=== PATIENT | female | born 1955 | race American Indian/Alaskan Native ===

== ENCOUNTER 2019-10-07 21:12 | Observation (INO) | payer MEDICARE ==
[2019-10-07] MEDS ORDERED: SODIUM CHLORIDE 0.9% 1000 ML 1,000 ML ONE (21:31)
[2019-10-07] MEDS ORDERED: SODIUM CHLORIDE 0.9% 1000 ML IV SOLN IV ONE ×2 (21:43→21:46)
--- NOTE | 2019-10-07 21:54 | Emergency Department Report ---
ED General Adult HPI - General Chief complaint: Weakness Stated complaint: GEN WEAKNESS/DOUBLE VISION Time Seen by Provider: 10/07/19 21:38 Source: patient, family Mode of arrival: Wheelchair Limitations: Physical Limitation - History of Present Illness Initial comments: Patient presents to the emergency department with a chief complaint of feeling weak with nausea that started on Sunday. The granddaughter states that she had multiple episodes of vomiting on Sunday but denies any diarrhea. She states today her grandmother was confused so she called EMS and when they arrived her blood pressure was low so they gave her a bag of fluids prior to transport. Patient now complains of a headache and continue weakness. Patient denies chest pain, shortness of breath, abdominal pain. On arrival to the ED blood pressure 76/40 and that after receiving a liter of fluid via EMS -: Gradual Severity scale (0 -10): 0 Consistency: constant Improves with: none Worsens with: none Associated Symptoms: denies other symptoms Treatments Prior to Arrival: none - Related Data Home Medications Medication Instructions Recorded Confirmed Last Taken Benzonatate [Tessalon Perles] 100 mg pe PO QDAY 10/08/19 10/08/19 Unknown DULoxetine [Cymbalta] 30 mg pe PO QDAY 10/08/19 10/08/19 Unknown Lisinopril [Zestril] 5 mg PO QDAY 10/08/19 10/08/19 Unknown Pantoprazole [Protonix TAB] 20 mg QDAY 10/08/19 10/08/19 Unknown amLODIPine 10 mg PO QDAY 10/08/19 10/08/19 Unknown Allergies Allergy/AdvReac Type Severity Reaction Status Date / Time ibuprofen Allergy Unknown Verified 10/07/19 21:23 Penicillins Allergy Unknown Verified 10/07/19 21:23 ED Review of Systems ROS: Stated complaint: GEN WEAKNESS/DOUBLE VISION Other details as noted in HPI Comment: All other systems reviewed and negative Constitutional: denies: chills, fever Eyes: denies: eye pain, eye discharge, vision change ENT: denies: ear pain, throat pain Respiratory: denies: cough, shortness of breath, wheezing Cardiovascular: denies: chest pain, palpitations Endocrine: no symptoms reported Gastrointestinal: denies: abdominal pain, nausea, diarrhea Genitourinary: denies: urgency, dysuria, discharge Musculoskeletal: denies: back pain, joint swelling, arthralgia Skin: denies: rash, lesions Neurological: headache, weakness. denies: paresthesias Psychiatric: denies: anxiety, depression Hematological/Lymphatic: denies: easy bleeding, easy bruising ED Past Medical Hx - Medications Home Medications: Home Medications Medication Instructions Recorded Confirmed Last Taken Type Benzonatate [Tessalon Perles] 100 mg pe PO QDAY 10/08/19 10/08/19 Unknown History DULoxetine [Cymbalta] 30 mg pe PO QDAY 10/08/19 10/08/19 Unknown History Lisinopril [Zestril] 5 mg PO QDAY 10/08/19 10/08/19 Unknown History Pantoprazole [Protonix TAB] 20 mg QDAY 10/08/19 10/08/19 Unknown History amLODIPine 10 mg PO QDAY 10/08/19 10/08/19 Unknown History ED Physical Exam - General Limitations: Physical Limitation General appearance: alert, in no apparent distress - Head Head exam: Present: atraumatic, normocephalic - Eye Eye exam: Present: normal appearance, PERRL, EOMI - ENT ENT exam: Present: mucous membranes moist - Neck Neck exam: Present: normal inspection - Respiratory Respiratory exam: Present: normal lung sounds bilaterally. Absent: respiratory distress - Cardiovascular Cardiovascular Exam: Present: regular rate, normal rhythm. Absent: systolic murmur, diastolic murmur, rubs, gallop - GI/Abdominal GI/Abdominal exam: Present: soft, normal bowel sounds. Absent: distended, tenderness - Extremities Exam Extremities exam: Present: normal inspection - Back Exam Back exam: Present: normal inspection - Neurological Exam Neurological exam: Present: alert, oriented X3, CN II-XII intact. Absent: motor sensory deficit - Psychiatric Psychiatric exam: Present: normal affect, normal mood - Skin Skin exam: Present: warm, dry, intact, normal color. Absent: rash ED Course Vital Signs 10/07/19 10/07/19 10/07/19 21:24 21:25 21:29 Temperature 97.7 F Pulse Rate 70 66 Respiratory 18 22 Rate Blood Pressure Blood Pressure 64/21 79/34 [Right] O2 Sat by Pulse 99 96 Oximetry 10/07/19 10/07/19 10/08/19 21:30 21:46 00:34 Temperature Pulse Rate 69 74 101 H Respiratory 22 21 28 H Rate Blood Pressure 84/40 76/44 Blood Pressure 170/109 [Right] O2 Sat by Pulse 98 99 96 Oximetry ED Medical Decision Making - Lab Data Result diagrams: 10/07/19 21:50 10/07/19 22:02 - EKG Data -: EKG Interpreted by Me EKG shows normal: sinus rhythm Rate: normal - Radiology Data Radiology results: report reviewed - Medical Decision Making The patient was given a total 4000 mL of normal saline with a blood pressure decreasing to 103 systolically Patient's initial lactic acid was elevated Patient will be admitted for further evaluation for her hypotension that was responsive to IV fluids Critical Care Time: Yes Critical care time in (mins) excluding proc time.: 45 Critical care attestation.: If time is entered above; I have spent that time in minutes in the direct care of this critically ill patient, excluding procedure time. ED Disposition Clinical Impression: Hypotension, Lactic acidosis Disposition: DC-09 OP ADMIT IP TO THIS HOSP Is pt being admited?: Yes Does the pt Need Aspirin: No Condition: Fair
[2019-10-07 22:39] LABS: Basophils % (Auto) 0.5 % (0.0-1.8); Eosinophils # (Auto) 0.2 K/mm3 (0.0-0.4); Eosinophils % (Auto) 2.4 % (0.0-4.3); Hematocrit 26.8 % (30.3-42.9); Hemoglobin 8.7 gm/dl (10.1-14.3); Lymphocytes % (Auto) 15.5 % (13.4-35.0); Mean Corpuscular HGB Conc 33 % (30-34); Mean Corpuscular Volume 88 fl (79-97); Monocytes # (Auto) 0.6 K/mm3 (0.0-0.8); Monocytes % (Auto) 10.1 % (0.0-7.3); Platelet Count 139 K/mm3 (140-440); Red Blood Count 3.05 M/mm3 (3.65-5.03); Red Cell Distribution Width 18.6 % (13.2-15.2)
--- NOTE | 2019-10-07 22:39 | XRay Report ---
CHEST 1 VIEW INDICATION: hypotensive. COMPARISON: None. FINDINGS: Support devices: None. Heart: Normal. Lungs/Pleura: No acute pulmonary or pleural findings. IMPRESSION: 1. No acute findings. Signer Name: Igor Patel MD Signed: 10/07/2019 10:34 PM Workstation Name: [id number]
--- NOTE | 2019-10-07 22:53 | Cat Scan Report ---
CT head without contrast INDICATION : headache. TECHNIQUE: Axial imaging performed from the skull apex through the skull base without the use of con trast. All CT scans at this location are performed using CT dose reduction for ALARA by means of aut omated exposure control. COMPARISON: None FINDINGS: Parenchyma: No acute intracranial hemorrhage or parenchymal abnormality. Ventricles: Ventricles are normal in size and appear symmetric. Soft tissues: Soft tissues including the orbits appear normal. Bones: No acute osseous abnormality. Sinuses: Mild mucosal thickening in the left maxillary sinus. Remaining sinuses and mastoid air cell s are clear. IMPRESSION: No acute abnormality. Signer Name: Brennen Vital MD Signed: 10/07/2019 10:49 PM Workstation Name: [id number]
[2019-10-07 23:00] LABS: Alanine Aminotransferase 28 units/L (7-56); Albumin 3.7 g/dL (3.9-5); BUN/Creatinine Ratio 15; Blood Urea Nitrogen 32 mg/dL (7-17); Calcium 8.9 mg/dL (8.4-10.2); Hemolysis Index 24
[2019-10-08 01:50] LABS: Bilirubin,Urine NEG (Negative); Blood,Urine NEG (Negative); Color,Urine Yellow (Yellow); Protein,Urine <15 mg/dL mg/dL (Negative); Urobilinogen,Urine < 2.0 mg/dL (<2.0)
[2019-10-08] MEDS ORDERED: ALBUTEROL 2.5 MG/3 ML NEBU IH PRN (04:52)
[2019-10-08] MEDS ORDERED: ONDANSETRON 4 MG/2 ML INJ IV PRN (04:52)
[2019-10-08] MEDS ORDERED: ACETAMINOPHEN 325 MG TAB PO PRN (04:52)
[2019-10-08] MEDS ORDERED: SODIUM CHLORIDE 0.45% 1000 ML 1,000 ML IV SCH (05:00)
--- NOTE | 2019-10-08 05:04 | History and Physical Report ---
History of Present Illness Date of examination: 10/08/19 Date of admission: 10/08/2019 Chief complaint: Generalized weakness and nausea History of present illness: 63-year-old -[place] female with history of HIV, hypertension, chronic pain, s/p recent cervical spine surgery, remote hx hepatitis c now cured, who presents to [facility] ED with complaints of generalized weakness and nausea x2 days. Patient's granddaughter is present at bedside and has assisted with providing history. Per granddaughter patient had multiple episodes of vomiting on Sunday (10/05/2019). On Sunday patient states that she felt weak during the day and needed to go back in the bed to rest. After spending a few hours in the bed she felt fine and was able to function at baseline. However today granddaughter states that she came home and found patient confused and called EMS. Upon EMS arrival patient was found to be hypotensive, was given a liter of IV fluids and transported to our facility for further evaluation and treatment. Additionally patient complains of chronic neck pain. Patient states that she had cervical spine surgery approximately 3 months ago and has been in pain since. She describes the pain as aching and rates it 8/10. The pain is aggravated with movement and relieved with rest and pain meds. Denies fever, noncompliance with meds, cough, sputum production, diarrhea or recent sick contacts. Will admit as observation for further evaluation. Past History Past Medical History: HIV/AIDS, hypertension, renal failure, other (Chronic pain, history of hep C now cured, depression) Past Surgical History: Other (Cervical spine surgery 2 months ago) Social history: lives with family Family history: no significant family history Medications and Allergies Allergies Allergy/AdvReac Type Severity Reaction Status Date / Time ibuprofen Allergy Unknown Verified 10/07/19 21:23 Penicillins Allergy Unknown Verified 10/07/19 21:23 Home Medications Medication Instructions Recorded Confirmed Last Taken Type Benzonatate [Tessalon Perles] 100 mg pe PO QDAY 10/08/19 10/08/19 Unknown History DULoxetine [Cymbalta] 30 mg pe PO QDAY 10/08/19 10/08/19 Unknown History Lisinopril [Zestril] 5 mg PO QDAY 10/08/19 10/08/19 Unknown History Pantoprazole [Protonix TAB] 20 mg QDAY 10/08/19 10/08/19 Unknown History amLODIPine 10 mg PO QDAY 10/08/19 10/08/19 Unknown History Active Meds: Active Medications Duloxetine HCl (Cymbalta) 30 mg PO QDAY [facility] Review of Systems All systems: negative Constitutional: fatigue, weakness, chronic pain Gastrointestinal: nausea, vomiting, no diarrhea Exam - Physical Exam Narrative exam: Physical exam General appearance: Present: No acute distress, alert and oriented 3, well- developed, -[place] adult female - EENT Eyes: Present: PERRL, EOM intact ENT: hearing intact, normal dentition - Neck Neck: Present: supple, normal ROM - Respiratory Respiratory effort: Non-labored Respiratory: Clear throughout - Cardiovascular Heart rate: 101 (bpm) Rhythm: Sinus tachycardia Heart Sounds: Present: S1 & S2. Absent: rub, click - Extremities Extremities: no ischemia, pulses intact, - Peripheral Assessment Peripheral Pulses: within normal limits - Abdominal General gastrointestinal: soft, non-tender, normal bowel sounds - Integumentary Integumentary: Present: warm, dry - Musculoskeletal Musculoskeletal: Able to move all extremities -Neurological Neurological: CN II-XII intact - Psychiatric Psychiatric: Appropriate for situation ,cooperative - Constitutional Vitals: Temp Pulse Resp BP Pulse Ox 97.7 F 75 13 111/55 99 10/07/19 21:24 10/08/19 04:30 10/08/19 04:30 10/08/19 04:30 10/08/19 04:30 Results - Labs CBC & Chem 7: 10/07/19 21:50 10/07/19 22:02 Labs: Laboratory Last Values WBC 6.4 K/mm3 (4.5-11.0) 10/07/19 21:50 RBC 3.05 M/mm3 (3.65-5.03) L 10/07/19 21:50 Hgb 8.7 gm/dl (10.1-14.3) L 10/07/19 21:50 Hct 26.8 % (30.3-42.9) L 10/07/19 21:50 MCV 88 fl (79-97) 10/07/19 21:50 MCH 29 pg (28-32) 10/07/19 21:50 MCHC 33 % (30-34) 10/07/19 21:50 RDW 18.6 % (13.2-15.2) H 10/07/19 21:50 Plt Count 139 K/mm3 (140-440) L 10/07/19 21:50 Lymph % (Auto) 15.5 % (13.4-35.0) 10/07/19 21:50 [place] % (Auto) 10.1 % (0.0-7.3) H 10/07/19 21:50 Eos % (Auto) 2.4 % (0.0-4.3) 10/07/19 21:50 Baso % (Auto) 0.5 % (0.0-1.8) 10/07/19 21:50 Lymph # 1.0 K/mm3 (1.2-5.4) L 10/07/19 21:50 [place] # 0.6 K/mm3 (0.0-0.8) 10/07/19 21:50 Eos # 0.2 K/mm3 (0.0-0.4) 10/07/19 21:50 Baso # 0.0 K/mm3 (0.0-0.1) 10/07/19 21:50 Seg Neutrophils % 71.5 % (40.0-70.0) H 10/07/19 21:50 Seg Neutrophils # 4.5 K/mm3 (1.8-7.7) 10/07/19 21:50 APTT 27.4 Sec. (24.2-36.6) 10/07/19 22:01 Sodium 139 mmol/L (137-145) 10/07/19 22:02 Potassium 3.8 mmol/L (3.6-5.0) 10/07/19 22:02 Chloride 103.0 mmol/L (98-107) 10/07/19 22:02 Carbon Dioxide 19 mmol/L (22-30) L 10/07/19 22:02 Anion Gap 21 mmol/L 10/07/19 22:02 BUN 32 mg/dL (7-17) H 10/07/19 22:02 Creatinine 2.2 mg/dL (0.7-1.2) H 10/07/19 22:02 Estimated GFR 23 ml/min 10/07/19 22:02 BUN/Creatinine Ratio 15 % 10/07/19 22:02 Glucose 115 mg/dL (65-100) H 10/07/19 22:02 Lactic Acid 1.20 mmol/L (0.7-2.0) 10/08/19 01:33 Calcium 8.9 mg/dL (8.4-10.2) 10/07/19 22:02 Total Bilirubin 0.40 mg/dL (0.1-1.2) 10/07/19 22:02 AST 56 units/L (5-40) H 10/07/19 22:02 ALT 28 units/L (7-56) 10/07/19 22:02 Alkaline Phosphatase 55 units/L (35-129) 10/07/19 22:02 Troponin T < 0.010 ng/mL (0.00-0.029) 10/07/19 22:02 Total Protein 7.3 g/dL (6.3-8.2) 10/07/19 22:02 Albumin 3.7 g/dL (3.9-5) L 10/07/19 22:02 Albumin/Globulin Ratio 1.0 % 10/07/19 22:02 Urine Color Yellow (Yellow) 10/08/19 00:55 Urine Turbidity Clear (Clear) 10/08/19 00:55 Urine pH 5.0 (5.0-7.0) 10/08/19 00:55 Ur Specific Fields 1.015 (1.003-1.030) 10/08/19 00:55 Urine Protein <15 mg/dl mg/dL (Negative) 10/08/19 00:55 Urine Glucose (UA) Neg mg/dL (Negative) 10/08/19 00:55 Urine Ketones Neg mg/dL (Negative) 10/08/19 00:55 Urine Blood Neg (Negative) 10/08/19 00:55 Urine Nitrite Neg (Negative) 10/08/19 00:55 Urine Bilirubin Neg (Negative) 10/08/19 00:55 Urine Urobilinogen < 2.0 mg/dL (<2.0) 10/08/19 00:55 Ur Leukocyte Esterase Tr (Negative) 10/08/19 00:55 Urine WBC (Auto) 2.0 /HPF (0.0-6.0) 10/08/19 00:55 Urine RBC (Auto) 1.0 /HPF (0.0-6.0) 10/08/19 00:55 U Epithel Cells (Auto) 1.0 /HPF (0-13.0) 10/08/19 00:55 - Imaging and Cardiology Imaging and Cardiology: CXR: FINDINGS: Support devices: None. Heart: Normal. Lungs/Pleura: No acute pulmonary or pleural findings. IMPRESSION: 1. No acute findings. CT Head: FINDINGS: Parenchyma: No acute intracranial hemorrhage or parenchymal abnormality. Ventricles: Ventricles are normal in size and appear symmetric. Soft tissues: Soft tissues including the orbits appear normal. Bones: No acute osseous abnormality. Sinuses: Mild mucosal thickening in the left maxillary sinus. Remaining sinuses and mastoid air cells are clear. IMPRESSION: No acute abnormality. Assessment and Plan Assessment and plan: 63-year-old -[place] female with history of HIV, hypertension, chronic pain, s/p recent cervical spine surgery, remote hx hepatitis c now cured, who presents to [facility] ED with complaints of generalized weakness and nausea x2 days. Patient's granddaughter is present at bedside and has assisted with providing history. Hypotension -BP on admission 76/66 -Responsive to fluid resuscitation -On IVF -Hx HTN -Continue to monitor BP -Hold all antihypertensive meds Lactic acidosis -Lactic acid on admission 2.6, now 1.2 -Received IV Abx in ED -on IVF -Continue to monitor -Cultures pending -Will hold off for now on starting IV abx KATERINA -Cr on admission 2.2 -??CKD with GFR 23 -Hydrate with IVF -Avoid nephrotoxic agents -Renal dose all meds HIV -Resume antiretroviral meds once medication reconciliation has been completed Chronic neck pain -Status post cervical spine surgery 3 months ago -Continue supportive care DVT PPX -On Heparin Advance Directives: No VTE prophylaxis?: Chemical Plan of care discussed with patient/family: Yes
[2019-10-08] MEDS: oxyCODONE /ACETAMINOPHEN 5-325MG TAB PO PRN ×3 (05:14→18:02)
[2019-10-08] MEDS ORDERED: ACETAMINOPHEN 325 MG TAB ONE (09:20)
[2019-10-08] MEDS: HEPARIN 5,000 UNIT/1 ML VIAL SUB-Q SCH ×2 (11:28→22:10)
[2019-10-08] MEDS: DULoxetine 30 MG CAP PO SCH (11:28)
[2019-10-08] MEDS: DOCUSATE SODIUM 100 MG CAP PO SCH ×2 (11:28→22:10)
[2019-10-08] MEDS ORDERED: LISINOPRIL 5 MG TAB PO SCH (14:00)
[2019-10-08] MEDS ORDERED: hydrALAZINE 20 MG/1 ML INJ IV PRN (14:06)
--- NOTE | 2019-10-08 14:06 | Event Note ---
Date: 10/08/19 Patient seen and examined reports as a result events * Left arm weakness * Slurred speech according to family is now resolved * Recent surgery * 2 episodes of hypotension since Sunday today. We will add a CVA work-up to this patient's treatment considering symptoms. Continue to hold antihypertensives will use hydralazine as needed if blood pressure gets too elevated. Will follow renal function test.
[2019-10-08] MEDS ORDERED: SODIUM CHLORIDE 0.9% 1000 ML 1,000 ML IV SCH (14:15)
--- NOTE | 2019-10-08 16:44 | Vascular Lab Report ---
Bilateral carotid Doppler. 21/01/2020. HISTORY: Cerebrovascular accident. FINDINGS: Duplex Doppler evaluation of the carotid system was performed with spectral waveform analys is. Antegrade vertebral flow is present bilaterally. Peak systolic velocity at the right internal carotid artery is 117 cm/s. Systolic velocity ratio is 1 .3. Peak systolic velocity at the left internal carotid artery is 149 cm/s. End-diastolic velocity is 31 cm/s. Systolic velocity ratio is 1.4. Grayscale imaging demonstrates scattered plaque. IMPRESSION: Mild velocity elevation at the left internal carotid artery. End-diastolic velocity and s ystolic velocity ratio is within normal limits. Stenosis is thought to be in the range of 50% per AI CET criteria. Signer Name: Barney Rodriguez MD Signed: 10/08/2019 4:39 PM Workstation Name: [id number]
--- NOTE | 2019-10-08 17:48 | Magnetic Resonance Report ---
MRI BRAIN 10/08/2019 INDICATION / CLINICAL INFORMATION: cva. Dizziness. Slurred speech. Left-sided weakness. TECHNIQUE: Multiplanar, multisequence MR images of the brain were obtained. COMPARISON: None available. FINDINGS: BRAIN / INTRACRANIAL CONTENTS: Unenhanced MR images of the brain demonstrate no evidence of acute int racranial abnormality. Ventricles and sulci are normal in size and shape There is no evidence of acute ischemic injury, hemorrhage, or mass. Some minimal chronic microangiopa thic white matter T2 weighted hyperintensities are present in the cerebral hemispheric white matter. There are no abnormal extra-axial fluid collections. EXTRACRANIAL: There is an air-fluid level present in the left maxillary sinus, with moderate mucosal thickening present throughout the paranasal sinuses noted. CRANIOCERVICAL JUNCTION: No significant abnormality. VASCULAR FLOW-VOIDS: No significant abnormality. IMPRESSION: No acute intracranial abnormality. Mild chronic and age-related changes. Left maxillary sinusitis Signer Name: Abraham Louis MD Signed: 10/08/2019 5:44 PM Workstation Name: [id number]
[2019-10-08 19:06] LABS: Blood Urea Nitrogen 16 mg/dL (7-17)
[2019-10-08] MEDS ORDERED: diphenhydrAMINE 50 MG CAP PO NR (23:00)
[2019-10-09] MEDS: oxyCODONE /ACETAMINOPHEN 5-325MG TAB PO PRN ×2 (02:25→07:56)
[2019-10-09 07:24] LABS: Hematocrit 30.6 % (30.3-42.9); Mean Corpuscular HGB Conc 33 % (30-34); Mean Corpuscular Volume 86 fl (79-97); Platelet Count 143 K/mm3 (140-440); Red Blood Count 3.54 M/mm3 (3.65-5.03); Red Cell Distribution Width 18.8 % (13.2-15.2)
[2019-10-09 07:29] LABS: Basophils % (Auto) 0.3 % (0.0-1.8); Eosinophils # (Auto) 0.1 K/mm3 (0.0-0.4); Eosinophils % (Auto) 2.8 % (0.0-4.3); Lymphocytes # (Auto) 1.3 K/mm3 (1.2-5.4); Lymphocytes % (Auto) 28.2 % (13.4-35.0); Monocytes # (Auto) 0.5 K/mm3 (0.0-0.8); Monocytes % (Auto) 10.8 % (0.0-7.3)
[2019-10-09 07:44] LABS: BUN/Creatinine Ratio 15; Blood Urea Nitrogen 9 mg/dL (7-17); Calcium 9.3 mg/dL (8.4-10.2); Hemolysis Index 7
[2019-10-09] MEDS ORDERED: POTASSIUM CHLORIDE ER 20 MEQ TAB PO SCH (09:00)
--- NOTE | 2019-10-09 09:08 | XRay Report ---
CERVICAL SPINE HISTORY: Neck pain. Recent surgery but uncertain as to the level. COMPARISON: None. TECHNIQUE: 4 views of the cervical spine obtained. FINDINGS: Vertebrae: Normal alignment. No fracture or significant abnormality. Disc Spaces:Moderate multilevel degenerative disc disease with disc space narrowing and anterior oste ophytes from C3-4 through C6-7. Facet Joints:No significant abnormality. Prevertebral Soft Tissues:No significant abnormality. Additional findings: Prominent laryngeal cartilage calcifications. No surgical hardware identified. IMPRESSION: 1. Moderate multilevel degenerative disc disease from C3-4 through C6-7. 2. No other significant finding. Signer Name: Shaq Hope MD Signed: 10/09/2019 9:04 AM Workstation Name: [id number]
[2019-10-09] MEDS: DULoxetine 30 MG CAP PO SCH (09:57)
[2019-10-09] MEDS: DOCUSATE SODIUM 100 MG CAP PO SCH (09:58)
[2019-10-09] MEDS: HEPARIN 5,000 UNIT/1 ML VIAL SUB-Q SCH (09:59)
[2019-10-09 11:43] VITALS: BP 113/53
--- NOTE | 2019-10-09 11:43 | Discharge Summary ---
Providers - Providers Date of Admission: 10/08/19 03:05 Attending physician: ROE NGUYEN MD Primary care physician: LEGAL DEPARTMENT MANAGER Hospitalization Reason for admission: generalized weakness Condition: Stable Hospital course: 63-year-old -[place] female with history of HIV, hypertension, chronic pain, s/p recent cervical spine surgery, remote hx hepatitis c now cured, who presents to [facility] ED with complaints of generalized weakness and nausea x2 days. Patient's granddaughter is present at bedside and has assisted with providing history. Per granddaughter patient had multiple episodes of vomiting on Sunday (10/05/2019). On Sunday patient states that she felt weak during the day and needed to go back in the bed to rest. After spending a few hours in the bed she felt fine and was able to function at baseline. However today granddaughter states that she came home and found patient confused and called EMS. Upon EMS arrival patient was found to be hypotensive, was given a liter of IV fluids and transported to our facility for further evaluation and treatment. Additionally patient complains of chronic neck pain. Patient states that she had cervical spine surgery approximately 3 months ago and has been in pain since. She describes the pain as aching and rates it 8/10. The pain is aggravated with movement and relieved with rest and pain meds. Denies fever, noncompliance with meds, cough, sputum production, diarrhea or recent sick contacts. Will admit as observation for further evaluation. needs pain management outpatient Pateint was noted to have * Left arm weakness now resolved * Slurred speech according to family is now resolved * Recent surgery * 2 episodes of hypotension since Sunday today. She undewent CVA work-up to this patient's treatment considering symptoms that was unrevealing. Continue to hold antihypertensives will use hydralazine as needed if blood pressure gets too elevated with adjustment of meds on discahrge. Will follow renal function test. 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 HIV Chronic neck pain Disposition: TO HOME OR SELFCARE Time spent for discharge: 35 mins Core Measure Documentation - Palliative Care Palliative Care/ Comfort Measures: Not Applicable - Core Measures Any of the following diagnoses?: none Exam - Physical Exam Narrative exam: General appearance: Present: No acute distress, alert and oriented 3, well- developed, -[place] adult female - EENT Eyes: Present: PERRL, EOM intact ENT: hearing intact, normal dentition - Neck Neck: Present: supple, normal ROM - Respiratory Respiratory effort: Non-labored Respiratory: Clear throughout - Cardiovascular Heart rate: 101 (bpm) Rhythm: Sinus tachycardia Heart Sounds: Present: S1 & S2. Absent: rub, click - Extremities Extremities: no ischemia, pulses intact, - Peripheral Assessment Peripheral Pulses: within normal limits - Abdominal General gastrointestinal: soft, non-tender, normal bowel sounds - Integumentary Integumentary: Present: warm, dry - Musculoskeletal Musculoskeletal: Able to move all extremities -Neurological Neurological: CN II-XII intact - Psychiatric Psychiatric: Appropriate for situation ,cooperative - Constitutional Vitals: Temp Pulse Resp BP Pulse Ox 98.3 F 101 H 20 182/79 94 10/09/19 06:54 10/09/19 06:54 10/09/19 06:54 10/09/19 06:54 10/09/19 06:54 Plan Activity: advance as tolerated, fall precautions Diet: low fat Special Instructions: record daily weights, record daily BP diary Follow up with: PRIMARY CARE, [Primary Care Provider] - 3-5 Days Prescriptions: oxyCODONE /ACETAMINOPHEN [Percocet 5/325 mg] 1 tab PO Q6H PRN #14 tablet PRN Reason: Pain, Moderate (4-6)
== END 2019-10-09 13:30 | disposition home or self-care (01) ==
LOC: ED 21:12 → 3A 10-08 03:05
PROVIDERS: ADMIT Internal Medicine Geriatric Medicine; ATTEND Internal Medicine
DX: N17.9 Acute kidney failure, unspecified (principal); I95.9 Hypotension, unspecified; E87.2 Acidosis; R47.81 Slurred speech; M54.2 Cervicalgia; G89.29 Other chronic pain; Z21 Asymptomatic human immunodeficiency virus [HIV] infection status
CPT/HCPCS: 36415; 70450; 70551; 71045; 72040; 80048; 80053; 81001; 82140; 82565; 84484; 84520; 85025; 85730; 87040; 87086; 93005; 93010; 93880; 96361; 96365; 96372; 96375; 99291; 99406; G0378; J0360; J1644; J1956; J2405; J7030